=== PATIENT | male | born 1965 | race Caucasian/White ===

== ENCOUNTER 2017-02-15 21:04 | Emergency (ER) | payer BC ==
[2017-02-15 22:10] VITALS: BP 134/79
[2017-02-15] MEDS ORDERED: HYDROCODONE/ACETAMINOPHEN 5-325 MG 6 TAB/DSPK PO PRN (22:38)
[2017-02-15] MEDS ORDERED: CLINDAMYCIN HCL 150 MG CAPSULE PO ONE (22:38)
--- NOTE | 2017-02-15 22:40 | ER Document Report ---
HPI - HPI Patient complains to provider of: dental pain Context: Patient is a 52 year old male that comes to the ED for chief complaint of dental pain for the past several days. He completed amoxicillin for dental caries and dental pain within the past week. He was told he needs multiple extractions, although he states he cannot afford it. Pain is mainly in the left upper jaw. He denies fever, sore throat, headache. He denies any daily medications. Past Medical History - General Information source: Patient - Social History Smoking Status: Never Smoker Chew tobacco use (# tins/day): No Frequency of alcohol use: Occasional Drug Abuse: None Lives with: Family Family History: Reviewed & Not Pertinent Neurological Medical History: Denies: Hx Seizures GI Medical History: Reports: Hx Gastroesophageal Reflux Disease, Hx Hiatal Hernia Surgical Hx: Negative - Immunizations Hx Diphtheria, Pertussis, Tetanus Vaccination: Yes Vertical Provider Document - CONSTITUTIONAL General Appearance: WD/WN, Mild Distress - HEENT HEENT: Atraumatic, Normocephalic. negative: Normal ENT Exam Mouth Diagram: 1 - widespread dental decay, erythema of gumline, no abscess - RESPIRATORY Respiratory: Breath Sounds Normal, No Respiratory Distress O2 Sat by Pulse Oximetry: 97 - CARDIOVASCULAR Cardiovascular: Regular Rate, Regular Rhythm - GI/ABDOMEN Gastrointestinal: Abdomen Soft, Abdomen Non-Tender - MUSCULOSKELETAL/EXTREMETIES Musculoskeletal/Extremeties: MAEW, FROM, Non-Tender Course - Re-evaluation Re-evalutation: Dental decay, dental caries, suspected dental infection but no evidence of abscess or Raphael's angina. Placing on clindamycin, given referral to local clinics with discomfort. Discussed follow-up and return precautions, patient states understanding and agreement - Vital Signs Vital signs: Temp Pulse Resp BP Pulse Ox 97.8 F 72 18 134/79 H 97 02/15/17 22:09 02/15/17 22:09 02/15/17 22:09 02/15/17 22:09 02/15/17 22:09 Discharge - Discharge Clinical Impression: Pain, dental Condition: Stable Disposition: HOME, SELF-CARE Additional Instructions: You have multiple dental caries and evidence of dental infection on examination. Take the clindamycin as directed, follow-up with the referral or one of the clinics on the list to have these extracted to prevent recurrence. Take ibuprofen or Tylenol for pain, take the pain medicine prescribed only if needed (i.e. sleep). Return to emergency department for any concerning symptoms including swelling. Prescriptions: Clindamycin HCl [Cleocin 150 mg Capsule] 150 mg PO Q6 #56 capsule Hydrocodone/Acetaminophen [[place] 5-325 mg Tablet] 1 - 2 tab PO ASDIR #12 tablet Referrals: [facility] [Provider Group] - Follow up as needed
== END 2017-02-15 22:56 | disposition home or self-care (01) ==
LOC: ER 21:04
DX: K08.89 Other specified disorders of teeth and supporting structures (principal); R68.84 Jaw pain
CPT/HCPCS: 99282

== ENCOUNTER 2017-10-08 19:28 | Emergency (ER) | payer OTHER, BC ==
[2017-10-08 20:04] VITALS: BP 138/72
--- NOTE | 2017-10-08 20:49 | ER Document Report ---
ED Hand/Wrist Injury - General Chief Complaint: Hand Swelling Stated Complaint: HAND PAIN Time Seen by Provider: 10/08/17 20:44 Notes: Patient is a 52-year-old healthy male complaining of right hand pain and swelling 1 day. Patient injured his hand at work yesterday. Hand was caught in a machine which pinched/punctured the skin. Patient noticed increased redness, swelling and pain today. Denies fever. Patient is not diabetic. Pain is localized to dorsal hand without radiculopathy or paresthesia - HPI Injury to: Hand - Right Where: Work Timing: Constant Quality of pain: Achy - Related Data Allergies/Adverse Reactions: No Known Allergies Allergy (Verified 10/08/17 19:51) Past Medical History - General Information source: Patient - Social History Smoking Status: Current Some Day Smoker Frequency of alcohol use: None Drug Abuse: None Lives with: Family Family History: Reviewed & Not Pertinent - Medical History Medical History: Negative Neurological Medical History: Denies: Hx Seizures GI Medical History: Reports: Hx Gastroesophageal Reflux Disease, Hx Hiatal Hernia - Immunizations Hx Diphtheria, Pertussis, Tetanus Vaccination: Yes Review of Systems - Review of Systems Constitutional: No symptoms reported EENT: No symptoms reported Cardiovascular: No symptoms reported Respiratory: No symptoms reported Gastrointestinal: No symptoms reported Genitourinary: No symptoms reported Male Genitourinary: No symptoms reported Musculoskeletal: No symptoms reported Skin: See HPI Hematologic/Lymphatic: No symptoms reported Neurological/Psychological: No symptoms reported Physical Exam - Vital signs Vitals: Temp Pulse Resp BP Pulse Ox 98.3 F 63 14 138/72 H 100 10/08/17 20:04 10/08/17 20:04 10/08/17 20:04 10/08/17 20:04 10/08/17 20:04 Interpretation: Normal - General General appearance: Appears well, Alert - HEENT Head: Normocephalic, Atraumatic Eyes: Normal Pupils: PERRL - Respiratory Respiratory status: No respiratory distress Chest status: Nontender Breath sounds: Normal Chest palpation: Normal - Cardiovascular Rhythm: Regular Heart sounds: Normal auscultation Murmur: No - Abdominal Inspection: Normal Distension: No distension Bowel sounds: Normal Tenderness: Nontender Organomegaly: No organomegaly - Back Back: Normal, Nontender - Extremities General upper extremity: Normal inspection, Nontender, Normal color, Normal ROM , Normal temperature General lower extremity: Normal inspection, Nontender, Normal color, Normal ROM , Normal temperature, Normal weight bearing. No: Isael's sign - Neurological Neuro grossly intact: Yes Cognition: Normal Orientation: AAOx4 Hudson Coma Scale Eye Opening: Spontaneous Luh Coma Scale Verbal: Oriented Hudson Coma Scale Motor: Obeys Commands Hudson Coma Scale Total: 15 Speech: Normal Motor strength normal: LUE, RUE, LLE, RLE Sensory: Normal - Psychological Associated symptoms: Normal affect, Normal mood - Skin Skin Temperature: Warm Skin Moisture: Dry Skin Color: Normal Irregularity with: Swelling, Tenderness, Warmth - Right dorsal hand with scabbed wound. Positive erythema and warmth to dorsal hand. No induration. No lymphangitis. Full range of motion with all fingers. Distal sensory motor and circulation intact Course - Re-evaluation Re-evalutation: 10/08/17 20:48 H and P are consistent with cellulitis. Patient is afebrile without signs and symptoms of sepsis. I do not suspect any deep tissue infection, osteomyelitis, underlying fractures. Patient will be treated with a course of antibiotics. Patient agreeable with plan and stable for discharge - Vital Signs Vital signs: Temp Pulse Resp BP Pulse Ox 98.3 F 63 14 138/72 H 100 10/08/17 20:04 10/08/17 20:04 10/08/17 20:04 10/08/17 20:04 10/08/17 20:04 Discharge - Discharge Clinical Impression: Cellulitis of right hand Condition: Stable Disposition: HOME, SELF-CARE Instructions: Cellulitis ([facility]), Antibiotic Therapy ([facility]), Elevation & Warmth ( [facility]), Soap Cleansing ([facility]) Prescriptions: Cephalexin Monohydrate [Keflex 500 mg Capsule] 500 mg PO QID #28 capsule
[2017-10-08] MEDS ORDERED: CEPHALEXIN 500 MG CAPSULE PO ONE (20:51)
[2017-10-08] MEDS ORDERED: HYDROCODONE/ACETAMINOPHEN 5-325 MG TABLET PO ONE (20:52)
== END 2017-10-08 21:04 | disposition home or self-care (01) ==
LOC: ER 19:28
DX: L03.113 Cellulitis of right upper limb (principal); M79.641 Pain in right hand; M79.89 Other specified soft tissue disorders; F17.200 Nicotine dependence, unspecified, uncomplicated
CPT/HCPCS: 99283

== ENCOUNTER 2018-06-18 23:28 | Emergency (ER) | payer BC, OTHER ==
[2018-06-19] MEDS ORDERED: ACETAMINOPHEN 325 MG TABLET PO ONE (00:19)
--- NOTE | 2018-06-19 00:37 | ER Document Report ---
ED Fall - General Chief Complaint: Fall Injury Stated Complaint: FALL, HEAD INJURY Time Seen by Provider: 06/19/18 00:05 Mode of Arrival: Ambulatory Information source: Patient Notes: 53-year-old male presents the ED for complaint of injury to his head. He states he lost his balance while in the bathroom and fell hitting his head on the faucet of the tub. Patient denies any loss of consciousness. He states he does have a headache and is a little dizzy. Patient states he had 2-3 beers tonight but is not a heavy drinker. states he drinks 3 or 4 beers a night but is not a heavy drinker. Patient is alert and oriented respirations regular and unlabored. 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 Lives with: Family Family History: Reviewed & Not Pertinent Patient has suicidal ideation: No Patient has homicidal ideation: No - Past Medical History Cardiac Medical History: Reports: None Pulmonary Medical History: Reports: None EENT Medical History: Reports: None Neurological Medical History: Reports: None Endocrine Medical History: Reports: None Renal/ Medical History: Reports: None Malignancy Medical History: Reports None GI Medical History: Reports: Hx Gastroesophageal Reflux Disease, Hx Hiatal Hernia Musculoskeletal Medical History: Reports Hx Arthritis Skin Medical History: Reports None Psychiatric Medical History: Reports: None Traumatic Medical History: Reports: None Infectious Medical History: Reports: None Surgical Hx: Negative Past Surgical History: Reports: None - Immunizations Immunizations up to date: Yes Hx Diphtheria, Pertussis, Tetanus Vaccination: Yes Review of Systems - Review of Systems Constitutional: No symptoms reported EENT: No symptoms reported Cardiovascular: Dizziness Respiratory: No symptoms reported Gastrointestinal: No symptoms reported Genitourinary: No symptoms reported Male Genitourinary: No symptoms reported Musculoskeletal: No symptoms reported Skin: Other Hematologic/Lymphatic: No symptoms reported Neurological/Psychological: Headaches. denies: Lost consciousness -: Yes All other systems reviewed and negative Physical Exam - Vital signs Vitals: Temp Pulse Resp BP Pulse Ox 98.0 F 59 L 16 148/71 H 98 06/18/18 23:34 06/18/18 23:34 06/18/18 23:34 06/18/18 23:34 06/18/18 23:34 Interpretation: Normal - General General appearance: Appears well, Alert - HEENT Head: Ecchymosis, Open wounds - Skin tear to the right scalp, Tenderness Eyes: Normal Pupils: PERRL Ears: Normal External canal: Normal Tympanic membrane: Normal Sinus: Normal Nasal: Normal Mouth/Lips: Normal Mucous membranes: Normal Pharynx: Normal Neck: Normal - Respiratory Respiratory status: No respiratory distress Chest status: Nontender Breath sounds: Normal Chest palpation: Normal - Cardiovascular Rhythm: Regular Heart sounds: Normal auscultation Murmur: No - Abdominal Inspection: Normal Distension: No distension Bowel sounds: Normal Tenderness: Nontender Organomegaly: No organomegaly - Back Back: Normal, Nontender - Extremities General upper extremity: Normal inspection, Nontender, Normal color, Normal ROM , Normal temperature General lower extremity: Normal inspection, Nontender, Normal color, Normal ROM , Normal temperature, Normal weight bearing. 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 Patient states that his headache was better with Tylenol. CAT scan was negative. Skin tear was cleaned with soap and water pat it dry bacitracin and Band-Aid applied. given instructions on care for his skin tear. Patient and were given instructions concerning the head injury and when to return to the ED. and patient both verbalized understanding and agreement with treatment plan. - Vital Signs Vital signs: Temp Pulse Resp BP Pulse Ox 97.8 F 53 L 18 124/72 99 06/19/18 01:16 06/19/18 01:16 06/19/18 01:16 06/19/18 01:16 06/19/18 01:16 - Diagnostic Test Radiology reviewed: Image reviewed, Reports reviewed Discharge - Discharge Clinical Impression: skin tear to scalp Head injury Qualifiers: Encounter type: initial encounter Qualified Code(s): S09.90XA - Unspecified injury of head, initial encounter Condition: Stable Disposition: HOME, SELF-CARE Additional Instructions: HEAD INJURY PRECAUTIONS: At this point, there is no evidence that your head injury is serious. Observation is necessary, however. Take only clear liquids for the first few hours, unless told otherwise by the doctor. If no pain medication was prescribed, you may take acetaminophen according to the directions on the bottle. Do not take any medication that may alter your level of alertness (unless you've discussed it with the doctor first) . Limit activity for the first 24 hours. Bed rest is best. During the first 24 hours, check to see approximately every two to three hours that the patient is easily arousable, responds normally, and can perform common tasks such as walking without difficulty. Contact your doctor or go to the hospital if any of the following things occur: Persistent vomiting, difficulty in arousing the patient, worsening or continued headache, or failure to improve as expected. Head injuries can cause symptoms that persist for a few days or even a few weeks. CONTUSION: Your injury has resulted in a contusion -- a crushing of the deep tissues. No injury to important structures was detected during the physician's exam. Contusions vary in the amount of pain they cause, and in the length of time required for healing. Typically, the area will become bruised, and will remain painful to touch for two or three weeks. However, most patients are back to working and playing within a few days. After the initial period of rest and cold-packs, your symptoms (together with the doctor's recommendations) will determine how rapidly you can get back to full activity. Usually this means "do what feels okay, but don't do things that hurt." If re-examination was recommended, it's important to follow up as instructed. Call the doctor or return any time if pain increases, if swelling becomes severe, if you develop numbness or weakness in an injured extremity, or if any other alarming symptoms occur. USE OF TYLENOL (ACETAMINOPHEN): Acetaminophen may be taken for pain relief or fever control. It's much safer than aspirin, offering a wider range of "safe" dosages. It is safe during . Some brand names are Tylenol, Panadol, Datril, Anacin 3, Tempra, and Liquiprin. Acetaminophen can be repeated every four hours. The following are maximum recommended dosages: WEIGHT Dose Drops Elixir Chewable( 80mg) (LBS.) drprs=droppers tsp=teaspoon 6 40 mg 0.4 ml (1/2) 6-11 80 mg 0.8 ml (full) tsp 1 tab 12-16 120 mg 1 1/2 drprs 3/4 tsp 1 1/2 tabs 17-23 160 mg 2 drprs 1 tsp 2 tabs 24-30 240 mg 3 drprs 1 1/2 tsp 3 tabs 30-35 320 mg 2 tsp 4 tabs 36-41 360 mg 2 1/4 tsp 4 1/2 tabs 42-47 400 mg 2 1/2 tsp 5 tabs 48-53 480 mg 3 tsp 6 tabs 54-59 520 mg 3 1/4 tsp 6 1/2 tabs 60-64 560 mg 3 1/2 tsp 7 tabs 65-70 600 mg 3 3/4 tsp 7 1/2 tabs 71-76 640 mg 4 tsp 8 tabs 77-82 720 mg 4 1/2 tsp 9 tabs 83-88 800 mg 5 tsp 10 tabs >89 pounds or adults 650 mg to 900 mg Acetaminophen can be repeated every four hours. Maximum dose not to exceed 4000 mg a day. These maximum recommended dosages are slightly higher than the dosages written on the product container, but these dosages are very safe and below the toxic dosage for acetaminophen. NON-SUTURED LACERATION: Your laceration did not require suturing. Some lacerations cannot be sutured because of increased infection risk, while others simply don't need stitches because they are shallow or very short. Your injury should be protected while it heals. Usually complete healing takes 10 to 14 days. Keep the dressing clean and dry, and change it every day. If you notice increasing pain, redness, swelling, drainage, or tender lumps in the armpit or groin above the injury, infection may be present. You should call the doctor at once. ICE PACKS: Apply ice packs frequently against the painful area. Many different schedules are recommended, such as "20 minutes on, 20 minutes off" or "one hour ice, two hours rest." If you need to work, you may need to go longer between ice treatments. You should plan to have the area ice packed AT LEAST one fourth of the time. The ice should be applied over the wrap, tape, or splint, or over a layer of cloth -- not directly against the skin. Some ice bags have a built-in cloth and can be put directly on the skin. SOAP CLEANSING: Gently wash the wound daily using a mild soap (like Ivory, Phisoderm, Neutrogena). Use warm water, rubbing gently until all debris, ooze, and crusting have been washed from the wound. Allow to dry briefly (about 10 minutes) after cleaning. Repeat this cleansing at least three times a day for the first two days and then once or twice a day. ANTIBIOTIC OINTMENT PROTECTION: Your wounds are such that dressing them is not practical or optional. After cleansing, you should apply a thin coating of antibiotic ointment ( Bacitracin, not Neosporin) to the wounds at least three times daily. This lessens infection risk, and may decrease the amount of scarring. Use a q-tip or dull butter knife, not your finger, to apply this ointment. Any debris or ooze which builds up in the ointment should be gently rubbed off with a sterile gauze pad. Harder crusting may need to be gently scrubbed off with a clean wash cloth with soap and warm water, perhaps applying a warm, wet wash cloth to the wound for ten minutes first. Development of redness, severe itching, or blistering may mean allergy to the ointment. See the doctor. FOLLOW-UP CARE: If you have been referred to a physician for follow-up care, call the physician s office for an appointment as you were instructed or within the next two days. If you experience worsening or a significant change in your symptoms, notify the physician immediately or return to the Emergency Department at any time for re-evaluation. Forms: Return to Work Referrals: PAT FRYE MD [Primary Care Provider] - 06/22/18
--- NOTE | 2018-06-19 00:56 | RADIOLOGY REPORT (SQ) ---
CLINICAL HISTORY: fell hitting head on spiggot COMPARISON: None. TECHNIQUE: CT HEAD WITHOUT IV CONTRAST on 06/19/2018 12:14 AM [employer] This exam was performed according to our departmental dose-optimization program, which includes automated exposure control, adjustment of the mA and/or kV according to patient size and/or use of iterative reconstruction technique. FINDINGS: There is no acute hemorrhage, mass effect or midline shift. Dueñas-white differentiation is preserved. There is no hydrocephalus. There is no significant volume loss for age. The calvarium is intact. Orbits and globes are unremarkable. There is mild thickening of the maxillary sinuses. Mastoid air cells are clear. IMPRESSION: No acute intracranial findings.
[2018-06-19 01:16] VITALS: BP 124/72
== END 2018-06-19 01:17 | disposition home or self-care (01) ==
LOC: ER 23:28
DX: S09.90XA Unspecified injury of head, initial encounter (principal); W18.30XA Fall on same level, unspecified, initial encounter; Y92.002 Bathroom of unspecified non-institutional (private) residence as the place of occurrence of the external cause
CPT/HCPCS: 70450; 99283